=== PATIENT | male | born 1980 | race Caucasian/White ===

== ENCOUNTER → 2020-01-09 10:46 | Outpatient (CLI) | payer OTHER, SELFPAY ==
[2020-01-09 12:33] LABS: Add Manual Diff / Slide Review NO; Basophils Absolute Auto 0 /uL (0-100); Basophils Percent Auto 0.6 % (0-2); Eosinophils Absolute Auto 100 /uL (0-450); Eosinophils Percent Auto 2.4 % (2-4); Hematocrit 44.6 % (41-53); Hemoglobin 15.3 g/dL (13.5-17.5); Lymphocytes Absolute Auto 1700 /uL (1100-4500); Lymphocytes Percent Auto 40.6 % (25-40); Mean Corpuscular HGB Conc 34.3 % (30-36); Mean Corpuscular Hemoglobin 31.6 PG (26-34); Mean Corpuscular Volume 92.3 fL (80-100); Monocytes Absolute Auto 400 /uL (0-900); Monocytes Percent Auto 10.5 % (3-14); Neutrophils Absolute Auto 2000 /uL (1500-7000); Neutrophils Percent Auto 45.9 % (50-75); Platelet Count 247 X10^3/uL (150-400); Red Blood Cell Count 4.83 X10^6/uL (4.5-5.9); Red Cell Distribution Width 12.6 % (11.6-14.8); White Blood Cell Count 4.3 X10^3/uL (4.5-11.0)
[2020-01-09 13:06] LABS: Alanine Aminotransferase 27 IU/L (<50); Albumin 4.7 g/dL (3.5-5.0); Albumin Globulin Ratio 1.8 (1.0-2.8); Alkaline Phosphatase 65 U/L (38-126); Aspartate Aminotransferase 28 IU/L (17-59); BUN Creatinine Ratio 17.7 (6-22); Bilirubin Total 0.6 mg/dL (0.2-1.3); Blood Urea Nitrogen 14 mg/dL (9-20); Calcium 9.5 mg/dL (8.4-10.2); Carbon Dioxide 24 mmol/L (22-32); Chloride 104 mmol/L (98-107); Cholesterol 244 mg/dL (140-199); Estimated Glomerular Filt Rate > 60.0 mL/min (>60); Globulin 2.6 g/dL (1.7-4.1); Glucose 96 mg/dL (70-100); HDL Cholesterol 68 mg/dL (40-60); HEMOLYSIS < 15 (0-50); LDL Cholesterol Calculated 135 mg/dL (<100); Potassium 4.5 mmol/L (3.4-5.1); Sodium 136 mmol/L (137-145); Total Protein 7.3 g/dL (6.3-8.2); Triglycerides 207 mg/dL (35-150)
[2020-01-09 13:54] LABS: TSH w/ Reflex to FT4 2.14 uIU/mL (0.47-4.68)
== END ==
PROVIDERS: Family Provider Family Medicine; PCP Internal Medicine; Referring Provider Internal Medicine; Visit Provider Internal Medicine
DX: G47.30 Sleep apnea, unspecified (principal); F32.9 Major depressive disorder, single episode, unspecified
CPT/HCPCS: 36415; 80053; 80061; 84443; 85025

== ENCOUNTER → 2020-05-26 14:54 | Outpatient (CLI) | payer OTHER, SELFPAY ==
[2020-05-26 17:54] LABS: COVID19 -Nasal RAPID Negative (Negative)
== END ==
PROVIDERS: PCP Internal Medicine; Visit Provider Family Medicine Sleep Medicine
DX: Z01.812 Encounter for preprocedural laboratory examination (principal); Z20.822 Contact with and (suspected) exposure to COVID-19
CPT/HCPCS: 87635; C9803

== ENCOUNTER 2024-05-07 10:45 | Outpatient (RCR) | payer OTHER, SELFPAY ==
--- NOTE | 2024-05-02 13:41 | OT.OPPOC ---
Physical, Occupational & Speech Therapy At [facility] Mike Leblanc [id number] 1980 Visit Care Team Role Provider Type Carrillo Pacheco MD Family Provider Physician Primary Care Provider Address: [address] [place] [address], [id number] Brien Grewal DO Attending Provider Non-Staff Referring Provider Address: [address] [place] [address], [id number] Occupational Therapy Plan of Care OT Outpatient Adult Evaluation Start: 05/02/24 09:25 Freq: Status: Active Protocol: Document 05/02/24 10:40 JASMIN (Rec: 05/02/24 10:33 JASMIN [id number]) General Information - Adult Visit Information Visit Number 1 Plan of Care Dates 05/02/24 - 07/11/24 Insurance Information Healthcare Management, no pre- auth, 60 PT/OT/ST combined 0 used this year Session Time Visit Start Date 05/02/24 Visit Start Time 10:40 Visit Stop Time 11:30 Setting Treatment Setting Outpatient Care Visit Type Note Type Initial Evaluation Referral Referring Physician Brien Grewal DO Reason for Referral tortus fracture of distal end of R radius with malunion; finger stiffness R Precautions Will not start any wrist ROM until 4 weeks post op. Identification Identification Confirmed Yes Identification Confirmed By name, MR Patient Questionnaires Quick Dash- Upper Extremity Quick Dash UE Score 63.6 Quick Dash UE Impairment 60 to 79% Impaired (Score 60- 79) Quick Dash- Work and Sports Modules Quick Dash W&S Score Work 56.25/Sport 100 Quick Dash Work and Sport Impairment 100% Impaired (Score 100) Goals Objective Measurements Objective Measurements AROM R hand: 1st: 0 to 24 (38P) MP; IP +10 to 32 (50P) 2nd: -20(-10P) to 52 (68P) MP, -20 (-8P) to 70 (82P) PIP, - 10 (-2) to 32 (48P)DIP 3rd: -18 (-10P) to 68 (74P) MP , -45 (-38P) to 54 (85P) PIP, -28 (-18P) to 62 (78P) DIP 4th: -30 (-12P) to 60 (72P) MP , -42 (-32P) to 72 (81P) PIP, -20 (-12P) to 42 (58P) DIP 5th: -22 (-18P) to 42 (61P) MP , -42 (-21P) to 78 (90P) PIP , -20 (-12) to 61 (81P) DIP Kapandji Opposition 10 Funds Transfer Clerk: R NT due to unable to instructional developer; L 94, 110, 111 (avg 105# ) Pinch: (R unable to test, unable to approximate fingers) lateral L 15#; pincer L 14#; 3 jaw L 22# Patient Specific Functional Scale (PSFS): Cooking 2/10; Music 0/10; director translational 10 Treatment Treatment OT educates pt on edema mgmt techniques including retrograde massage and elevation. OT performs retrograde massage as tolerated to each finger. OT educated pt on PROM for composite finger flexion and individual finger extension. Pt issued this HEP in addition to active finger opposition. Short Term Goals Short Term Goals 1. Pt will demonstrate edema mgmt techniques I'ly 2. Pt will be I with initial HEP. 3. Pt will report improvement in function with respect to PSFS by at least 4 points cumulatively between categories . 4. Pt will participate in instructional developer and pinch strength assessment on R. Usp Goals Usp Goals 1. Pt will be I with advanced HEP. 2. Pt will tolerated PROM to all digits to WFL for flexion and extension. 3. Pt will demonstrate Kapandji Opposition 12/28. 4. Pt will increase R instructional developer strength to within 15# of L for improved work function. 5. Pt will report no pain following tx. Assessment/Plan Assessment Patient Response Good Rehabilitation Potential Good Impairments Identified ADLs,Body Mechanics, Coordination/Dexterity, Flexibility,Functional Activities,Pain,Weakness,Range of Motion,Meaningful Activities,Stiffness,Swelling, Soft Tissue Mobility Treatment Assessment Pt is a 44 yo M referred for skilled OT services following tortus fracture of distal end of R radius with a malunion that was surgically repaired on 04/21/24. Pt has resulting R finger stiffness. Per MD order, pt has restriction of no wrist ROM until 4 weeks post op. Pt reports that he fell with his arms behind his body while roller skating approximately 8 weeks ago resulting in the fracture. Pt had surgery on 04/21/24 to correct the malunion. Pt follows-up with surgeon on Sunday. Pt is R hand dominant . 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 Pt is lifting up to 50# at a time with his L UE. Pt reports that all work tasks take longer, reports specific difficulty with typing and handwriting, and reports that his R UE generally slows him down. Pt has one day of the week that he has to respond to emails and has been using just his L hand to do so. Prior to injury, pt would plays musical instruments at least once a week. Pt is unable to participate in the task right now. Pt reports he has assistance at home if he needs it. Pt reports that he primarily has found ways to adapt to his BADL with using his non dominant hand primarily. Pt?s medical history is significant for depression. Pt is a former smoker and now vapes. Pt reports that sometime before his injury, he noticed that his R 3rd and 4th digits ?had a lot of stiffness before the injury?. Pt reports pain during PROM at 4/10. No other pain noted. Pt has significant swelling in each of his digits. Pt reports that he keeps his arm in a sling most of the time. OT discussed adjusting the angle on the sling so that his hand is at his heart level. OT discussed keeping his hand propped with pillows when sitting and to prop above heart level when sleeping. Pt has significant stiffness for both flexion and extension at each joint of his R dominant hand. Pt will benefit from skilled OT services to address ROM, edema mgmt, strengthening, and improved functional use with R dominant side. When allowed by surgeon , OT will assess pt?s R wrist ROM and strength needs. Plan Length of treatment (weeks) 10 Plan of Care Start Date 05/02/24 Plan of Care End Date 07/11/24 Comment 1-2x/wk Treatment Frequency Twice a Week Treatment Duration 45 Minutes Therapeutic Contents Active Range of Motion,Client Education,Functional Activities,Home Exercise Program,Joint Protection, Manual Therapy,Education, Neuromuscular Re-Education, Self-Care,Stretching/ Flexibility Activities, Therapeutic Activities, Therapeutic Exercises, Modalities Modalities As Needed Types of Modalities Contrast Bath,Cyrotherapy Additional Types of Modalities MHP, PB Patient Instruction Home Exercise Program,Plan of Care,Questions/Concerns Functional Wrist/Hand Scan Hand Side Sensory Assessment Sensory Profile2 Electronically Signed by: Suki Ray OT 05/02/24 5600 If you are in agreement with this Plan of Care, please return a signed and dated copy. I have reviewed this Plan of Care and certify that the skilled therapy services above are required to meet the patient?s needs. Physician Signature Date Printed Name and Credentials Clinical Instructor Signature Printed Name and Credentials
--- NOTE | 2024-05-07 12:57 | OT.OP.TRT ---
Visit Care Team Role Provider Type Carrillo Pacheco MD Family Provider Physician Primary Care Provider Specialty: Internal Medicine Address: [address] [place] [address], [id number] Email: [email or web address] Brien Grewal DO Attending Provider Non-Staff Referring Provider Specialty: Orthopedics Address: [address] [place] [address], [id number] Email: Occupational Therapy Treatment Note OT Outpatient Treatment Note - Adult Start: 05/02/24 09:25 Freq: Status: Active Protocol: Document 05/07/24 10:44 JASMIN (Rec: 05/07/24 10:49 JASMIN [id number]) OT Outpatient Adult Treatment Note Session Time Visit Start Date 05/07/24 Visit Start Time 10:45 Visit Stop Time 11:30 Visit Information Visit Number 07/10 Plan of Care Dates 05/02/24 - 07/11/24 Insurance Information Healthcare Management, no pre- auth, 60 PT/OT/ST combined Setting Treatment Setting Outpatient Care Visit Type Note Type Treatment Note - Subjective Identification Type Name Identification Reconciled With Medical Record Observations Pt reports that he had follow up with sx on 05/05/18. He was released to perform wrist ROM two weeks from that date. He has been scheduled to have a splint made this coming week. Chief Complaint(s) Loss of Motion/Stiffness,Pain Effect on Activity - Objective Short Term Goals 1. Pt will demonstrate edema mgmt techniques I'ly 2. Pt will be I with initial HEP. 3. Pt will report improvement in function with respect to PSFS by at least 4 points cumulatively between categories. 4. Pt will participate in reconsignment clerk and pinch strength assessment on R. Supervisor Rod Placing Goals 1. Pt will be I with advanced HEP. 2. Pt will tolerated PROM to all digits to WFL for flexion and extension. 3. Pt will demonstrate Kapandji Opposition 12/28. 4. Pt will increase R reconsignment clerk strength to within 15# of L for improved work function. 5. Pt will report no pain following tx. - Exercises 2 Descriptor blue foam reconsignment clerk squeezes with hand elevated 1 Descriptor digit blockinst-5th each joint flex and ext as able x10 with extended holds Manual Therapy Manual Therapy 1st-5th digit, each joint, grade II oscillations for improved joint comfort and mobility prior to PROM. PROM digits 1st-5th flex and ext each joint as tolerated with extended holds. STM to 3rd and 4th digits palmar side to thickened tendon for improved extensibility. - Assessment Patient Response to Treatment Good Rehabilitation Potential Good Impairments Identified ADLs,Body Mechanics, Coordination/Dexterity, Flexibility,Functional Activities,Pain,Weakness,Range of Motion,Meaningful Activities,Stiffness,Swelling, Soft Tissue Mobility Assessment of Improvement Pt verbalizes that he has increased the angle with his sling to have his hand more elevated. Pt has tolerated HEP well per his reports. Pt tolerated tx well. Pt continues to have significant swelling and stiffness globally on R hand. OT re- educated pt on edema mgmt techniques, specifically elevation, milking/edema massage, and active movement while elevated. OT will continue to assess pts I with these. Cont per established POC. - Plan Therapy Recommendations Continue with Current Program Amount of Therapy Recommended 2-3 Months Comment 1-2x/wk Length of Session 45 Minutes Therapeutic Contents Active Range of Motion,Client Education,Functional Activities,Home Exercise Program,Joint Protection, Manual Therapy,Education, Neuromuscular Re-Education, Self-Care,Stretching/ Flexibility Activities, Therapeutic Activities, Therapeutic Exercises, Modalities Modalities As Needed Types of Modalities Contrast Bath,Cyrotherapy Additional Types of Modalities CLARENCEP, PB
--- NOTE | 2024-05-19 08:45 | OT.OP.DC ---
Visit Care Team Role Provider Type Carrillo Pacheco MD Family Provider Physician Primary Care Provider Address: [address] [place] [address], [id number] Email: [email or web address] Brien Grewal DO Attending Provider Non-Staff Referring Provider Address: [address] [place] [address], [address] Email: OT Outpatient OT Outpatient Adult Evaluation Start: 05/02/24 09:25 Freq: Status: Active Protocol: Document 05/02/24 10:40 JASMIN (Rec: 05/02/24 10:33 JASMIN [id number]) General Information - Adult Visit Information Visit Number 1 Plan of Care Dates 05/02/24 - 07/11/24 Insurance Information Healthcare Management, no pre- auth, 60 PT/OT/ST combined 0 used this year Session Time Visit Start Date 05/02/24 Visit Start Time 10:40 Visit Stop Time 11:30 Setting Treatment Setting Outpatient Care Visit Type Note Type Initial Evaluation Referral Referring Physician Brien Grewal DO Reason for Referral tortus fracture of distal end of R radius with malunion; finger stiffness R Precautions Will not start any wrist ROM until 4 weeks post op. Identification Identification Confirmed Yes Identification Confirmed By name, MR Patient Questionnaires Quick Dash- Upper Extremity Quick Dash UE Score 63.6 Quick Dash UE Impairment 60 to 79% Impaired (Score 60- 79) Quick Dash- Work and Sports Modules Quick Dash W&S Score Work 56.25/Sport 100 Quick Dash Work and Sport Impairment 100% Impaired (Score 100) Goals Objective Measurements Objective Measurements AROM R hand: 1st: 0 to 24 (38P) MP; IP +10 to 32 (50P) 2nd: -20(-10P) to 52 (68P) MP, -20 (-8P) to 70 (82P) PIP, - 10 (-2) to 32 (48P)DIP 3rd: -18 (-10P) to 68 (74P) MP , -45 (-38P) to 54 (85P) PIP, -28 (-18P) to 62 (78P) DIP 4th: -30 (-12P) to 60 (72P) MP , -42 (-32P) to 72 (81P) PIP, -20 (-12P) to 42 (58P) DIP 5th: -22 (-18P) to 42 (61P) MP , -42 (-21P) to 78 (90P) PIP , -20 (-12) to 61 (81P) DIP Kapandji Opposition 4/10 Flying Shear Operator: R NT due to unable to distribution clerk; L 94, 110, 111 (avg 105# ) Pinch: (R unable to test, unable to approximate fingers) lateral L 15#; pincer L 14#; 3 jaw L 22# Patient Specific Functional Scale (PSFS): Cooking 2/10; Music 0/10; roast master 2 /10 Treatment Treatment OT educates pt on edema mgmt techniques including retrograde massage and elevation. OT performs retrograde massage as tolerated to each finger. OT educated pt on PROM for composite finger flexion and individual finger extension. Pt issued this HEP in addition to active finger opposition. Short Term Goals Short Term Goals 1. Pt will demonstrate edema mgmt techniques I'ly 2. Pt will be I with initial HEP. 3. Pt will report improvement in function with respect to PSFS by at least 4 points cumlitively between categories . 4. Pt will participate in distribution clerk and pinch strength assessment on R. Penitentiary Goals Service Manager Goals 1. Pt will be I with advanced HEP. 2. Pt will tolerated PROM to all digits to WFL for flexion and extension. 3. Pt will demonstrate Kapandji Opposition 12/28. 4. Pt will increase R distribution clerk strength to within 15# of L for improved work function. 5. Pt will report no pain following tx. Assessment/Plan Assessment Patient Response Good Rehabilitation Potential Good Impairments Identified ADLs,Body Mechanics, Coordination/Dexterity, Flexibility,Functional Activities,Pain,Weakness,Range of Motion,Meaningful Activities,Stiffness,Swelling, Soft Tissue Mobility Treatment Assessment Pt is a 44 yo M referred for skilled OT services following tortus fracture of distal end of R radius with a malunion that was surgically repaired on 04/21/24. Pt has resulting R finger stiffness. Per MD order, pt has restriction of no wrist ROM until 4 weeks post op. Pt reports that he fell with his arms behind his body while roller skating approximately 8 weeks agp resulting in the fracture. Pt had surgery on 04/21/24 to correct the malunion. Pt follows-up with surgeon on Sunday. Pt is R hand dominant . 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 Pt is lifting up to 50# at a time with his L UE. Pt reports that all work tasks take longer, reports specific difficulty with typing and handwriting, and reports that his R UE generally slows him down. Pt has one day of the week that he has to respond to emails and has been using just his L hand to do so. Prior to injury, pt would plays musical instruments at least once a week. Pt is unable to participate in the task right now. Pt reports he has assistance at home if he needs it. Pt reports that he primarily has found ways to adapt to his BADL with using his non dominant hand primarily. Pt?s medical history is significant for depression. Pt is a former smoker and now vapes. Pt reports that sometime before his injury, he noticed that his R 3rd and 4th digits ?had a lot of stiffness before the injury?. Pt reports pain during PROM at 4/10. No other pain noted. Pt has significant swelling in each of his digits. Pt reports that he keeps his arm in a sling most of the time. OT discussed adjusting the angle on the sling so that his hand is at his heart level. OT discussed keeping his hand propped with pillows when sitting and to prop above heart level when sleeping. Pt has significant stiffness for both flexion and extension at each joint of his R dominant hand. Pt will benefit from skilled OT services to address ROM, edema mgmt, strengthening, and improved functional use with R dominant side. When allowed by surgeon , OT will assess pt?s R wrist ROM and strength needs. Plan Length of treatment (weeks) 10 Plan of Care Start Date 05/02/24 Plan of Care End Date 07/11/24 Comment 1-2x/wk Treatment Frequency Twice a Week Treatment Duration 45 Minutes Therapeutic Contents Active Range of Motion,Client Education,Functional Activities,Home Exercise Program,Joint Protection, Manual Therapy,Education, Neuromuscular Re-Education, Self-Care,Stretching/ Flexibility Activities, Therapeutic Activities, Therapeutic Exercises, Modalities Modalities As Needed Types of Modalities Contrast Bath,Cyrotherapy Additional Types of Modalities MHP, PB Patient Instruction Home Exercise Program,Plan of Care,Questions/Concerns Functional Wrist/Hand Scan Hand Side Sensory Assessment Sensory Profile2 OT Outpatient Treatment Note - Adult Start: 05/02/24 09:25 Freq: Status: Active Protocol: Document 05/19/24 08:44 JASMIN (Rec: 05/19/24 08:45 JASMIN [id number]) OT Outpatient Adult Treatment Note General Information General Information Pt left message with office staff that he would like to d/ c his OT care at this time. Pt has found a therapy clinic that is more convenient with his work schedule and is transferring care. Pt was seen for eval and one tx. D/C pt at this time. - - Objective Short Term Goals 1. Pt will demonstrate edema mgmt techniques I'ly 2. Pt will be I with initial HEP. 3. Pt will report improvement in function with respect to PSFS by at least 4 points cumulatively between categories. 4. Pt will participate in distribution clerk and pinch strength assessment on R. Penitentiary Goals 1. Pt will be I with advanced HEP. 2. Pt will tolerated PROM to all digits to WFL for flexion and extension. 3. Pt will demonstrate Kapandji Opposition 12/28. 4. Pt will increase R distribution clerk strength to within 15# of L for improved work function. 5. Pt will report no pain following tx. - - -
== END 2024-05-29 14:40 | disposition home or self-care (01) ==
LOC: OT 10:45
PROVIDERS: Family Provider Internal Medicine; PCP Internal Medicine; Referring Provider Orthopaedic Surgery; Visit Provider Orthopaedic Surgery
DX: S52.5 Fracture of lower end of radius (principal); M25.641 Stiffness of right hand, not elsewhere classified
CPT/HCPCS: 97110; 97140; 97165